=== PATIENT | male | born 1990 | race Caucasian/White ===

== ENCOUNTER 2018-11-19 13:00 | Inpatient (IN) | payer OTHER ==
[2018-11-19 21:55] VITALS: BMI 28.1
--- NOTE | 2018-11-19 23:23 | HP ---
CIWA Score Nausea/Vomitin Muscle Tremors: 4-Moderate,w/Arms Extend Anxiety: 1-Mildly Anxious Agitation: 4-Moderately Restless Paroxysmal Sweats: 3 (Increased facial moisture) Orientation: 0-Oriented Tacttile Disturbances: 0-None Auditory Disturbances: 0-None Visual Disturbances: 0-None Headache: 0-None Present CIWA-Ar Total Score: 15 - Admission Criteria OASAS Guidelines: Admission for Medically Managed Detox: Requires at least one of the followin. CIWA greater than 12 2. Seizures within the past 24 hours 3. Delirium tremens within the past 24 hours 4. Hallucinations within the past 24 hours 5. Acute intervention needed for co occurring medical disorder 6. Acute intervention needed for co occurring psychiatric disorder 7. Severe withdrawal that cannot be handled at a lower level of care (continued vomiting, continued diarrhea, abnormal vital signs) requiring intravenous medication and/or fluids 8. Patient presents the following: CIWA greater than 12 Admission Criteria Met: Admission criteria met Admission ROS [facility] Chief Complaint: Alcohol withdrawal. Allergies/Adverse Reactions: Allergies Allergy/AdvReac Type Severity Reaction Status Date / Time No Known Allergies Allergy Verified 11/19/18 21:50 History of Present Illness: First [facility] visit for this 28 yom w/ alcohol withdrawal requesting detox from alcohol and prescribed Klonopin and illicit Xanax. Heroin use disorder began at age 14. Continues to relapse w/ opiates. Using IV. Has shared works. Denies sharing needles. Currently on [facility]. Current dose: Methadone 220 mg PO Daily. Last medicated this a.m. Alcohol use since age 11. Current use x 1-2 pints daily x 6 months. Cocaine/crack use since age Uses via IVDU and also smokes. Marijuana use since age 11. Current use 2x/wk. Amphetamines - states took some Crytstal meth 3 days - states - 3 rd time using in past 6 months. Nicotine use since age 11. States down to 1/2 PPD. Hx seizures - last 4 months ago; + Blackouts - last 7 months ago; Hx: Overdose x 7. Last 3 years ago prior to starting MMTP. PMHx: Hep C, Childhood asthma; GERD, Burning w/ urination x 3 months; Foot Drop ; MHHx: Anxiety, Insomnia, Depression: Denies thoughts of harming self or others. Last saw a MH Provider @ [facility]. Takes multiple MH meds, including gabapentin, as a mood stabilizer. Patient Name: Stan Núñez Date: 1990 Address: [address] [place] [address] Sex: Male Rx Written Rx Dispensed Drug Quantity Days Supply Prescriber Name 10/22/2018 10/29/2018 clonazepam 1 mg tablet 90 30 Daniel Farooq MD 09/24/2018 10/01/2018 clonazepam 1 mg tablet 90 30 Daniel Farooq MD 09/03/2018 09/03/2018 clonazepam 1 mg tablet 90 30 Daniel Farooq MD Search Terms: Stan Núñez, 1990 Search Date: 11/19/2018 11:21:31 PM States Searched: [place], [place], [place], [place], [place], [place], [place] The Drug Utilization Report below displays the controlled substance prescriptions, if any, that were dispensed in the indicated state(s). The information displayed on this report is compiled from requests submitted to other states' PMPs, and accurately reflects the information as returned by them. Blank mendoza indicate data not provided by other state. This report was requested by: Brittany Salvador | Reference #: [id number] Exam Limitations: No Limitations - Ebola screening Have you traveled outside of the country in the last 21 days: No Have you had contact with anyone from an Ebola affected area: No Have you been sick,other than usual withdrawal symptoms: No (Denies recent exposure to measles) Do you have a fever: No - Review of Systems Constitutional: Chills, Diaphoresis, Changes in sleep (Difficulty falling or staying asleep.) EENT: reports: Blurred Vision, Nose Congestion, Dental Problems (Missing and broken teeth. Some pain w/ chewing.) Respiratory: reports: No Symptoms reported Cardiac: reports: No Symptoms Reported GI: reports: Diarrhea (soft, brown, x 3 today), Nausea, Indigestion (Hx chronic GERD) : reports: Burning (Intermtittent x 3 months. No blood.) Musculoskeletal: reports: Back Pain (Chronic (L) lower back achy pain x 6 months. Pain is a "5". Increases w/ laying down on (L) side" Improves w/ stretching exercises.), Other (Hx foot drop - will f/u orthopedics upon discharge) Integumentary: reports: Bruising (r/t injection drug uses) Neuro: reports: Numbness ((L) foot) Endocrine: reports: Increased Thirst, Other (Hot flashes) Hematology: reports: No Symptoms Reported Psychiatric: reports: Judgement Intact, Orientated x3, Agitated, Anxious, Depressed (Denies thoughts of harming self or others.) Patient History - PPD History Previous Implant?: Yes Documented Results: Negative w/o proof Implanted On Prior R Admission?: Yes PPD to be Administered?: Yes - Smoking Cessation Smoking history: Current every day smoker Have you smoked in the past 12 months: Yes Aproximately how many cigarettes per day: 10 Hx Chewing Tobacco Use: No Initiated information on smoking cessation: Yes 'Breaking Loose' booklet given: 11/19/18 - Substance & Tx. History Hx Alcohol Use: Yes Hx Substance Use: Yes Substance Use Type: Alcohol, Cocaine, Heroin, Marijuana, Opiates, Tranquilizers Hx Substance Use Treatment: Yes (detox, rehab, Currently on MMTP) - Substances abused Alcohol Substance route: Oral Frequency: Daily Amount used: 2 [place]ODKA Age of first use: 13 Date of last use: 11/19/18 Alprazolam (Xanax) Substance route: Oral Frequency: Daily Amount used: 6 MG Age of first use: 16 Date of last use: 11/19/18 Benzodiazepine (Klonopin) Substance route: Oral Frequency: Daily Amount used: 6 MG Age of first use: 16 Date of last use: 11/19/18 Admission Physical Exam BHS - Vital Signs Vital Signs: Vital Signs - 24 hr 11/19/18 11/19/18 21:50 22:31 Temperature 97.0 F L 97.0 F L Pulse Rate 93 H 93 H Respiratory 18 18 Rate Blood Pressure 113/94 113/94 - Physical General Appearance: Yes: Nourished, Moderate Distress, Tremorous, Sweating ( Increased facial moisture), Anxious HEENTM: Yes: EOMI (Jerking movement of eyes upon lateral gaze), Hearing grossly Normal, Normocephalic, Normal Voice, PARESH (Pupils = 5 mm), Pharynx Normal, Nasal Congestion, Other (Poor dentition) Respiratory: Yes: Lungs Clear, Normal Breath Sounds, No Respiratory Distress Neck: Yes: No masses,lesions,Nodules, Supple Breast: Yes: Breast Exam Deferred Cardiology: Yes: Regular Rhythm, Regular Rate, S1, S2 Abdominal: Yes: Non Tender, Flat, Soft, Increased Bowel Sounds Genitourinary: Yes: Within Normal Limits Musculoskeletal: Yes: full range of Motion, Gait Steady (w/ use of cane), Other (Decreased flexibility (L) foot) Extremities: Yes: Normal Capillary Refill, Normal Range of Motion, Tremors ( Gross tremors hands on arm elevation) Neurological: Yes: cafe worker II-XII NML intact (Jerking movement of eyes upon lateral gaze), Alert, Motor Strength 5/5 Integumentary: Yes: Normal Color, Warm, Erythema (Increased erythema on arms associated w/ injection drug use.), Diaphoresis (Increased facial moisture), Track Cole (Both arms w/ increased erythema; areas of ecchimosis; No increased warmth or induration.) Lymphatic: Yes: Within Normal Limits - Diagnostic (1) Alcohol dependence with uncomplicated withdrawal Current Visit: Yes Status: Acute (2) Cannabis dependence, uncomplicated Current Visit: Yes Status: Chronic (3) Sedative, hypnotic or anxiolytic dependence with withdrawal, uncomplicated Current Visit: Yes Status: Acute (4) Cocaine dependence, uncomplicated Current Visit: Yes Status: Chronic (5) Nicotine dependence, uncomplicated Current Visit: Yes Status: Chronic Qualifiers: Nicotine product type: cigarettes Qualified Code(s): F17.210 - Nicotine dependence, cigarettes, uncomplicated (6) Amphetamine abuse Current Visit: Yes Status: Chronic (7) History of left foot drop Current Visit: Yes Status: Acute (8) GERD (gastroesophageal reflux disease) Current Visit: Yes Status: Acute (9) History of hepatitis C Current Visit: Yes Status: Acute (10) History of asthma Current Visit: Yes Status: Acute Cleared for Admission S - Detox or Rehab [facility] Level of Care: Medically Managed Detox Regimen/Protocol: Valium (ATIVAN DETOX) Claeared for Rehab Admission: No Breathalyzer - Breathalyzer Breathalyzer: 0 Urine Drug Screen - Test Device Lot number: [id number] Expiration date: 08/05/20 - Control Is test valid?: Yes - Results Drug screen NEGATIVE: No Urine drug screen results: THC-Marijuana, MESHA-Cocaine, MET-Methamphetamine, AMP- Amphetamines, FEN-Fentanyl, MOP-Opiates, MTD-Methadone, BZO-Benzodiazepines Inpatient Rehab Admission - Rehab Decision to Admit Inpatient rehab admission?: No
[2018-11-19] MEDS ORDERED: ACETAMINOPHEN 325 MG TABLET (FP) PO PRN ×2 (23:55)
[2018-11-19] MEDS ORDERED: MENTHOL/PHENOL 1 EACH UD MM PRN (23:55)
[2018-11-19] MEDS ORDERED: IBUPROFEN 400 MG TABLET (FP) PO PRN (23:55)
[2018-11-19] MEDS ORDERED: BISMUTH SUBSALICYLATE 262 MG/15 ML BTL PO PRN (23:55)
[2018-11-19] MEDS ORDERED: MAG HYDROX/AL HYDROX/SIMETH 30 ML UNIT-DOSE CUP PO PRN (23:55)
[2018-11-19] MEDS ORDERED: MAGNESIUM HYDROX 2400MG/30ML ORAL SUSPENSION 30 ML CUP PO PRN (23:55)
[2018-11-19] MEDS ORDERED: MAGNESIUM CITRATE 300 ML BOTTLE PO PRN (23:55)
[2018-11-20] MEDS ORDERED: LORazepam 2 MG TABLET PO ONE (00:02)
[2018-11-20] MEDS: cloNIDine HCL 0.1 MG TABLET PO PRN ×3 (02:26→17:44)
[2018-11-20] MEDS: LORazepam 2 MG TABLET PO SCH ×4 (05:20→22:17)
[2018-11-20] MEDS: METHOCARBAMOL 500 MG TABLET PO PRN ×2 (05:22→13:38)
[2018-11-20] MEDS ORDERED: METHADONE HCL 10 MG TABLET PO SCH (07:00)
[2018-11-20] MEDS ORDERED: METHADONE HCL 10 MG TABLET ONE (07:29)
[2018-11-20] MEDS ORDERED: METHADONE HCL 40 MG DISPERSABLE TABLET ONE (07:30)
[2018-11-20] MEDS: METHADONE 200 MG, METHADONE 20 MG PO SCH (07:40)
[2018-11-20] MEDS: LORazepam 1 MG TABLET PO PRN ×2 (07:42→13:38)
[2018-11-20] MEDS: PRENATAL VITAMINS W/ FOLIC ACID TABLET (FP) PO SCH (10:29)
[2018-11-20] MEDS: NICOTINE POLACRILEX 2 MG GUM BUC PRN ×2 (10:30→22:18)
[2018-11-20] MEDS: NICOTINE 14 MG/24 HOURS TOPICAL PATCH TD SCH (10:31)
--- NOTE | 2018-11-20 10:37 | PN ---
S CIWA - CIWA Score Nausea/Vomitin-No Nausea/No Vomiting Muscle Tremors: 2 Anxiety: 2 Agitation: 2 Paroxysmal Sweats: 3 Orientation: 0-Oriented Tacttile Disturbances: 0-None Auditory Disturbances: 0-None Visual Disturbances: 0-None Headache: 2-Mild CIWA-Ar Total Score: 11 BHS Progress Note (SOAP) Subjective: c/o headache, anxiety, shakes, and sweats. Objective: 11/20/18 10:36 Vital Signs 11/20/18 11/20/18 11/20/18 03:30 06:13 06:30 Temperature 96.9 F L Pulse Rate 66 Respiratory 18 18 18 Rate Blood Pressure 119/81 11/20/18 09:31 Temperature 97.4 F L Pulse Rate 95 H Respiratory 18 Rate Blood Pressure 124/75 Labs pending. Assessment: 11/20/18 10:37 AOX3, in no acute distress Full ROM, ambulating in the unit. Withdrawal symptoms. Plan: continue detox. increase fluids.
[2018-11-20 10:46] LABS: ALBUMIN 3.9 g/dl (3.4-5.0); BILIRUBIN,TOTAL 0.8 mg/dL (0.2-1); BLOOD UREA NITROGEN 13.1 mg/dL (7-18); CALCIUM 9.2 mg/dL (8.5-10.1); CREATININE 0.9 mg/dL (0.55-1.3); POTASSIUM 4.4 mmol/L (3.5-5.1); TOT PROT 7.2 g/dl (6.4-8.2)
[2018-11-20 11:09] LABS: HEMATOCRIT 38.9 % (35.4-49); HEMOGLOBIN 13.3 GM/dL (11.7-16.9); MCH 31.4 pg (25.7-33.7); MCHC 34.3 g/dl (32.0-35.9); MEAN CELL VOLUME 91.7 fl (80-96); MEAN PLT VOLUME 7.6 fl (7.5-11.1); RBC 4.24 M/mm3 (4.00-5.60); RDW 13.1 % (11.9-15.9); WHITE BLOOD COUNT 5.8 K/mm3 (4.0-10.0)
[2018-11-20 11:30] LABS: PLATELET COUNT 196 K/MM3 (134-434)
[2018-11-20] MEDS: THIAMINE HCL 100 MG TABLET (FP) PO SCH (22:16)
[2018-11-20] MEDS: MELATONIN 5 MG TABLETS PO PRN (22:17)
[2018-11-21] MEDS ORDERED: METHADONE HCL 10 MG TABLET ONE (04:15)
[2018-11-21] MEDS ORDERED: METHADONE HCL 40 MG DISPERSABLE TABLET ONE (04:15)
[2018-11-21] MEDS: LORazepam 1 MG TABLET PO SCH ×4 (05:54→22:16)
[2018-11-21] MEDS: METHADONE 200 MG, METHADONE 20 MG PO SCH (05:54)
[2018-11-21] MEDS: METHOCARBAMOL 500 MG TABLET PO PRN ×2 (05:54→17:22)
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
[2018-11-21] MEDS: PRENATAL VITAMINS W/ FOLIC ACID TABLET (FP) PO SCH (10:13)
[2018-11-21] MEDS: busPIRone HCL 10 MG TABLET (FP) PO SCH ×2 (10:13→22:16)
[2018-11-21] MEDS: NICOTINE POLACRILEX 2 MG GUM BUC PRN ×4 (10:14→22:19)
[2018-11-21] MEDS: NICOTINE 14 MG/24 HOURS TOPICAL PATCH TD SCH (10:14)
--- NOTE | 2018-11-21 11:46 | PN ---
S CIWA - CIWA Score Nausea/Vomitin Muscle Tremors: 1-None Visible, but [place] Anxiety: 1-Mildly Anxious Agitation: 1-Slight > Activity Paroxysmal Sweats: 1-Minimal Palms Moist Orientation: 0-Oriented Tacttile Disturbances: 0-None Auditory Disturbances: 1-Very Mild Visual Disturbances: 0-None Headache: 1-Very Mild CIWA-Ar Total Score: 8 BHS Progress Note (SOAP) Subjective: SHAKY, SWEATING, GENERALIZED DISCOMFORT Objective: 11/21/18 11:44 Laboratory Tests 11/20/18 11/20/18 11/20/18 07:40 07:40 07:40 WBC 5.8 RBC 4.24 Hgb 13.3 Hct 38.9 MCV 91.7 MCH 31.4 MCHC 34.3 RDW 13.1 Plt Count 196 MPV 7.6 Sodium 138 Potassium 4.4 Chloride 102 Carbon Dioxide 32 Anion Gap 4 L BUN 13.1 Creatinine 0.9 Est GFR (CKD-EPI)AfAm 134.24 Est GFR (CKD-EPI)NonAf 115.82 Random Glucose 83 Calcium 9.2 Total Bilirubin 0.8 AST 45 H ALT 70 H Alkaline Phosphatase 122 H Total Protein 7.2 Albumin 3.9 RPR Titer Nonreactive 11/21/18 11:44 Vital Signs - 24 hr 11/20/18 11/20/18 11/20/18 13:34 17:59 21:36 Temperature 96.8 F L 96.4 F L Pulse Rate 59 L 69 57 L Respiratory 18 16 16 Rate Blood Pressure 102/57 L 122/76 101/71 11/21/18 11/21/18 11/21/18 00:30 03:30 06:39 Temperature 97.2 F L Pulse Rate 81 Respiratory 18 18 18 Rate Blood Pressure 118/70 11/21/18 09:22 Temperature 97.3 F L Pulse Rate 83 Respiratory 18 Rate Blood Pressure 90/62 NOTE MILD LFT ELEVATION ALERT ORIENTED AMBULATING Assessment: 11/21/18 11:45 ETOH DEP/WITHDRAWAL MILD TRANAMINITIS Plan: CONT DETOX PROTOCOL HYDRATION ENCOURAGED OUTPT FU MILD TRNASAMINITIS
[2018-11-21] MEDS: LORazepam 1 MG TABLET PO PRN (12:36)
[2018-11-21] MEDS: GABAPENTIN 400 MG CAPSULE (FP) PO SCH ×2 (14:26→22:16)
--- NOTE | 2018-11-21 16:54 | EKG ---
Test Reason : Blood Pressure : / mmHG Vent. Rate : 063 BPM Atrial Rate : 063 BPM P-R Int : 154 ms QRS Dur : 082 ms QT Int : 452 ms P-R-T Axes : 053 060 053 degrees QTc Int : 462 ms POOR DATA QUALITY, INTERPRETATION MAY BE ADVERSELY AFFECTED NORMAL SINUS RHYTHM WITH SINUS ARRHYTHMIA NORMAL ECG NO PREVIOUS ECGS AVAILABLE Confirmed by MD MARIA T, ISAMAR ([id number]) on 11/21/2018 4:54:02 PM Referred By: ADARSH Confirmed By:ISAMAR LIVE MD
[2018-11-21] MEDS ORDERED: SUVOREXANT 10 MG TABLET PO PRN (22:00)
[2018-11-21] MEDS: THIAMINE HCL 100 MG TABLET (FP) PO SCH (22:16)
[2018-11-21 22:32] LABS: URINE APPEARANCE CLEAR; URINE BILIRUBIN NEGATIVE (NEGATIVE); URINE COLOR YELLOW; URINE GLUCOSE (UA) NEGATIVE (NEGATIVE); URINE KETONE NEGATIVE (NEGATIVE); URINE LEUK ESTERASE NEGATIVE (NEGATIVE); URINE NITRITE NEGATIVE (NEGATIVE); URINE PROTEIN NEGATIVE (NEGATIVE)
[2018-11-22] MEDS: LORazepam 1 MG TABLET PO PRN ×2 (00:46→19:50)
[2018-11-22] MEDS: METHOCARBAMOL 500 MG TABLET PO PRN ×2 (00:46→07:11)
[2018-11-22] MEDS ORDERED: METHADONE HCL 10 MG TABLET ONE (05:06)
[2018-11-22] MEDS ORDERED: METHADONE HCL 40 MG DISPERSABLE TABLET ONE (05:06)
[2018-11-22] MEDS: METHADONE 200 MG, METHADONE 20 MG PO SCH (05:24)
[2018-11-22] MEDS: GABAPENTIN 400 MG CAPSULE (FP) PO SCH ×3 (05:24→22:12)
[2018-11-22] MEDS: LORazepam 0.5 MG TABLET PO SCH ×4 (05:24→22:12)
[2018-11-22] MEDS: NICOTINE POLACRILEX 2 MG GUM BUC PRN ×5 (06:03→22:13)
[2018-11-22] MEDS: cloNIDine HCL 0.1 MG TABLET PO PRN ×2 (07:11→19:50)
[2018-11-22] MEDS: busPIRone HCL 10 MG TABLET (FP) PO SCH ×2 (10:39→22:12)
[2018-11-22] MEDS: PRENATAL VITAMINS W/ FOLIC ACID TABLET (FP) PO SCH (10:40)
[2018-11-22] MEDS: NICOTINE 14 MG/24 HOURS TOPICAL PATCH TD SCH (10:40)
--- NOTE | 2018-11-22 14:29 | PN ---
[facility] CIWA - CIWA Score Nausea/Vomitin-No Nausea/No Vomiting Muscle Tremors: 2 Anxiety: 3 Agitation: 1-Slight > Activity Paroxysmal Sweats: 3 Orientation: 0-Oriented Tacttile Disturbances: 0-None Auditory Disturbances: 0-None Visual Disturbances: 2-Mild Sensitivity Headache: 0-None Present CIWA-Ar Total Score: 11 S Progress Note (SOAP) Subjective: Chills, Interrupted Sleep, Diarrhea, Sweating. Objective: PATIENT A & O X 3, OBSERVED AMBULATING ON UNIT UNASSISTED. IN NO ACUTE DISTRESS. 11/22/18 14:27 Vital Signs Temperature 99.3 F 11/22/18 13:16 Pulse Rate 78 11/22/18 13:16 Respiratory Rate 18 11/22/18 13:16 Blood Pressure 109/73 11/22/18 13:16 O2 Sat by Pulse Oximetry (%) Laboratory Tests 11/20/18 11/20/18 11/20/18 07:40 07:40 07:40 WBC 5.8 RBC 4.24 Hgb 13.3 Hct 38.9 MCV 91.7 MCH 31.4 MCHC 34.3 RDW 13.1 Plt Count 196 MPV 7.6 Sodium 138 Potassium 4.4 Chloride 102 Carbon Dioxide 32 Anion Gap 4 L BUN 13.1 Creatinine 0.9 Est GFR (CKD-EPI)AfAm 134.24 Est GFR (CKD-EPI)NonAf 115.82 Random Glucose 83 Calcium 9.2 Total Bilirubin 0.8 AST 45 H ALT 70 H Alkaline Phosphatase 122 H Total Protein 7.2 Albumin 3.9 Urine Color Urine Appearance Urine pH Ur Specific [place] Urine Protein Urine Glucose (UA) Urine Ketones Urine Blood Urine Nitrite Urine Bilirubin Urine Urobilinogen Ur Leukocyte Esterase RPR Titer Nonreactive 11/21/18 16:00 WBC RBC Hgb Hct MCV MCH MCHC RDW Plt Count MPV Sodium Potassium Chloride Carbon Dioxide Anion Gap BUN Creatinine Est GFR (CKD-EPI)AfAm Est GFR (CKD-EPI)NonAf Random Glucose Calcium Total Bilirubin AST ALT Alkaline Phosphatase Total Protein Albumin Urine Color Yellow Urine Appearance Clear Urine pH 6.0 Ur Specific [place] 1.024 Urine Protein Negative Urine Glucose (UA) Negative Urine Ketones Negative Urine Blood Negative Urine Nitrite Negative Urine Bilirubin Negative Urine Urobilinogen 1.0 Ur Leukocyte Esterase Negative RPR Titer LABS NOTED. Assessment: 11/22/18 14:27 WITHDRAWAL SYMPTOMS. ELEVATED LIVER ENZYMES. 11/22/18 14:28 Plan: CONTINUE DETOX. INCREASE DAILY PO FLUID / WATER INTAKE. PRN PEPTO-BISMOL PO FOR DIARRHEA.
[2018-11-22] MEDS: THIAMINE HCL 100 MG TABLET (FP) PO SCH (22:12)
[2018-11-22] MEDS: MELATONIN 5 MG TABLETS PO PRN (22:13)
[2018-11-22] MEDS ORDERED: LORazepam 0.5 MG TABLET PO PRN (23:00)
[2018-11-23] MEDS ORDERED: METHADONE HCL 10 MG TABLET ONE (04:57)
[2018-11-23] MEDS ORDERED: METHADONE HCL 40 MG DISPERSABLE TABLET ONE (04:57)
[2018-11-23] MEDS: METHADONE 200 MG, METHADONE 20 MG PO SCH (05:25)
[2018-11-23] MEDS: GABAPENTIN 400 MG CAPSULE (FP) PO SCH (05:26)
[2018-11-23] MEDS: LORazepam 0.5 MG TABLET PO SCH (05:26)
[2018-11-23] MEDS: NICOTINE POLACRILEX 2 MG GUM BUC PRN (05:29)
[2018-11-23 06:08] VITALS: BP 117/76; PULSE 86; TEMP 97.4
--- NOTE | 2018-11-23 16:21 | DS ---
[facility] Detox Discharge Summary Admission Date: 11/20/18 Discharge Date: 11/23/18 - History Present History: Alcohol Dependence, Cannabis Dependence, Cocaine Dependence, Sedative Dependence Additional Comments: PATIENT REFERRED TO [facility] ([place], [place]) FOR AFTERCARE. PATIENT WILL ALSO RETURN TO [facility] ([place], [place]), WHERE HE HAS PREVIOUSLY BEEN A CLIENT FOR AFTERCARE. PATIENT WAS DISCHARGED FORM DETOX UNIT IN STABLE MEDICAL CONDITION. Pertinent Past History: Nicotine Dependence, History Of [place] Abuse, G.E.R.D, History Of left foot Drop, Hep C, Asthma, History Of Seizures, History Of Blackouts, M.M.T.P., Anxiety, Insomnia, Depression, Bipolar II Disorder, Post-Traumatic Stress Disorder. - Physical Exam Results Vital Signs: Vital Signs Temperature 97.4 F L 11/23/18 06:07 Pulse Rate 86 11/23/18 06:07 Respiratory Rate 18 11/23/18 06:07 Blood Pressure 117/76 11/23/18 06:07 O2 Sat by Pulse Oximetry (%) Pertinent Admission Physical Exam Findings: WITHDRAWAL SYMPTOMS. Laboratory Tests 11/20/18 11/20/18 11/20/18 07:40 07:40 07:40 WBC 5.8 RBC 4.24 Hgb 13.3 Hct 38.9 MCV 91.7 MCH 31.4 MCHC 34.3 RDW 13.1 Plt Count 196 MPV 7.6 Sodium 138 Potassium 4.4 Chloride 102 Carbon Dioxide 32 Anion Gap 4 L BUN 13.1 Creatinine 0.9 Est GFR (CKD-EPI)AfAm 134.24 Est GFR (CKD-EPI)NonAf 115.82 Random Glucose 83 Calcium 9.2 Total Bilirubin 0.8 AST 45 H ALT 70 H Alkaline Phosphatase 122 H Total Protein 7.2 Albumin 3.9 Urine Color Urine Appearance Urine pH Ur Specific [place] Urine Protein Urine Glucose (UA) Urine Ketones Urine Blood Urine Nitrite Urine Bilirubin Urine Urobilinogen Ur Leukocyte Esterase RPR Titer Nonreactive 11/21/18 16:00 WBC RBC Hgb Hct MCV MCH MCHC RDW Plt Count MPV Sodium Potassium Chloride Carbon Dioxide Anion Gap BUN Creatinine Est GFR (CKD-EPI)AfAm Est GFR (CKD-EPI)NonAf Random Glucose Calcium Total Bilirubin AST ALT Alkaline Phosphatase Total Protein Albumin Urine Color Yellow Urine Appearance Clear Urine pH 6.0 Ur Specific [place] 1.024 Urine Protein Negative Urine Glucose (UA) Negative Urine Ketones Negative Urine Blood Negative Urine Nitrite Negative Urine Bilirubin Negative Urine Urobilinogen 1.0 Ur Leukocyte Esterase Negative RPR Titer LABS NOTED. - Treatment Hospital Course: Detox Protocol Followed, Detoxed Safely, Responded well, Discharged Condition Good Patient has Accepted a Rehab Referral to: PT. REFERRED TO [facility] ([place] - Medication Discharge Medications: Ambulatory Orders Buspirone HCl [Buspar -] 10 mg PO BID 11/19/18 - Diagnosis (1) Alcohol dependence with uncomplicated withdrawal Status: Acute (2) History of left foot drop Status: Acute (3) Sedative, hypnotic or anxiolytic dependence with withdrawal, uncomplicated Status: Acute (4) Substance induced mood disorder Status: Acute (5) Substance-induced sleep disorder Status: Acute (6) Amphetamine abuse Status: Chronic (7) Bipolar II disorder Status: Chronic (8) Cannabis dependence, uncomplicated Status: Chronic (9) Cocaine dependence, uncomplicated Status: Chronic (10) GERD (gastroesophageal reflux disease) Status: Chronic Qualifiers: Esophagitis presence: esophagitis presence not specified Qualified Code(s) : K21.9 - Gastro-esophageal reflux disease without esophagitis (11) History of asthma Status: Chronic (12) History of hepatitis C Status: Chronic (13) Nicotine dependence, uncomplicated Status: Chronic Qualifiers: Nicotine product type: cigarettes Qualified Code(s): F17.210 - Nicotine dependence, cigarettes, uncomplicated (14) PTSD (post-traumatic stress disorder) Status: Chronic - AMA Did Patient Leave Against Medical Advice: No
== END 2018-11-23 09:10 | disposition home or self-care (01) | DRG 773 ==
LOC: YASAS 13:00 → Y3N 11-20 01:48
PROVIDERS: ADMIT Surgery; ATTEND Surgery
PROC: HZ2ZZZZ Detoxification Services for Substance Abuse Treatment (ICD-10-PCS; principal; 2018-11-20)
DX: F10.230 Alcohol dependence with withdrawal, uncomplicated (principal); F13.230 Sedative, hypnotic or anxiolytic dependence with withdrawal, uncomplicated; F14.20 Cocaine dependence, uncomplicated; F11.20 Opioid dependence, uncomplicated; F12.20 Cannabis dependence, uncomplicated; F15.10 Other stimulant abuse, uncomplicated; F17.210 Nicotine dependence, cigarettes, uncomplicated; F19.24 Other psychoactive substance dependence with psychoactive substance-induced mood disorder; F19.282 Other psychoactive substance dependence with psychoactive substance-induced sleep disorder; F31.81 Bipolar II disorder; F43.10 Post-traumatic stress disorder, unspecified; F41.9 Anxiety disorder, unspecified; G47.00 Insomnia, unspecified; J45.909 Unspecified asthma, uncomplicated; B18.2 Chronic viral hepatitis C; K21.9 Gastro-esophageal reflux disease without esophagitis; R94.5 Abnormal results of liver function studies; Z87.39 Personal history of other diseases of the musculoskeletal system and connective tissue; Z86.69 Personal history of other diseases of the nervous system and sense organs
CPT/HCPCS: 36415; 80053; 81003; 85027; 86593; 93005; 93010; J0735